=== PATIENT | female | born 1970 | race Caucasian/White ===

== ENCOUNTER 2022-05-01 10:12 | Outpatient (CLI) | payer OTHER, SELFPAY ==
[2022-05-01 21:36] LABS: Albumin* 4.6 g/dL (3.3-5.0); Chloride* 101 mmol/L (96-114); Sodium* 137 mmol/L (135-149)
[2022-05-01 21:37] LABS: Potassium* 4.9 mmol/L (3.6-5.1)
[2022-05-01 21:38] LABS: Cholesterol* 228 mg/dL (90-199)
[2022-05-01 21:39] LABS: Alkaline Phosphatase* 74 U/L (40-150); Aspartate Amino Transferase* 30 U/L (12-35); Bilirubin Total* 0.5 mg/dL (0.1-1.5); Blood Urea Nitrogen* 20 mg/dL (7-30); Carbon Dioxide* 28 mmol/L (20-32); Creatinine* 0.7 mg/dL (0.5-1.5); Estimated Glomerular Filt Rate 103 ml/min; Total Protein* 7.2 g/dL (6.0-8.3)
[2022-05-01 21:40] LABS: Alanine Aminotransferase* 21 U/L (4-35); Calcium* 9.5 mg/dL (8.4-10.6); Glucose* 93 mg/dL (60-115); HDL Cholesterol* 84 mg/dL (>=50); LDL Cholesterol Calculated 125 mg/dL (<100); Triglycerides* 97 mg/dL (40-149)
== END 2022-05-01 10:13 | disposition home or self-care (01) ==
PROVIDERS: PCP Physician Assistant Medical; Visit Provider Physician Assistant Medical
DX: Z01.419 Encounter for gynecological examination (general) (routine) without abnormal findings (principal); Z13.6 Encounter for screening for cardiovascular disorders; Z13.29 Encounter for screening for other suspected endocrine disorder
CPT/HCPCS: 80053; 80061; 84443